=== PATIENT | female | born 1995 | race Two or more races ===

== ENCOUNTER 2020-02-25 11:39 | Emergency (ER) | payer BC, OTHER ==
[~2020-02-25] VITALS: Ht 165.1 cm; Wt 68.0 kg
--- NOTE | 2020-02-25 12:28 | NUR ---
XRAY BEING PERFORMED BY BEDSIDE
[2020-02-25] MEDS ORDERED: KETOROLAC TROMETHAMINE INJ 60 MG/2 ML VIAL IM ONE (12:30)
[2020-02-25] MEDS ORDERED: KETOROLAC TROMETHAMINE INJ 30 MG/ML VIAL ONE (13:07)
--- NOTE | 2020-02-25 13:17 | NUR ---
Patient discharged to home in stable condition. Written and verbal after care instructions given. Patient verbalizes understanding of instruction.
[2020-02-25 13:18] VITALS: BP 121/77
== END 2020-02-25 13:18 | disposition home or self-care (01) ==
LOC: ER 11:41
DX: S93.492A Sprain of other ligament of left ankle, initial encounter (principal); W18.39XA Other fall on same level, initial encounter; Y93.89 Activity, other specified; Y92.89 Other specified places as the place of occurrence of the external cause; Y99.8 Other external cause status
CPT/HCPCS: 73564; 73590; 73610; 96372; 99284; J1885